=== PATIENT | female | born 1960 | race Caucasian/White ===

== ENCOUNTER 2017-01-21 10:27 | Observation (INO) | payer OTHER ==
[~2017-01-21] VITALS: Ht 170.2 cm; Wt 87.8 kg
--- NOTE | ~2017-01-21 | HEMODYNAMI ---
PATIENT:KAYLA PERKINS MEDICAL RECORD: [id number] : 62 [facility] ADMISSION DATE: 01/21/17 Generatedon:01/22/20179:58 Patient name: KAYLA PERKINS Patient #: [id number] SSN: : 1960 Date of study: 01/22/2017 Page: Of Hemodynamic Procedure Report Patient Data Patient Demographics Procedure consent was obtained First Name: KAYLA Gender: Female Last Name: GREGORIO : 1960 Middle Initial: D Age: 56 year(s) Patient #: [id number] Race: Unknown Additional ID: [id number] Contact details [address]: [address] [place] [address] State: [place] City: [place] Zip code: [address] Past Medical History Allergies Allergen Reaction Date Comments Reported Codeine 01/22/2017 Admission Admission Data Admission Date: 01/21/2017 Admission Time: 12:51 Room #: [facility]9 Procedure Procedure Types Cath Procedure Diagnostic Procedure [facility] w/Coronaries Miscellaneous Procedures Moderate Sedation up to 30 minutes Procedure Description Procedure Date Procedure Date: 01/22/2017 Procedure Start Time: 9:41 Procedure End Time: 9:58 Procedure Staff Name Function Andrew Solorzano MD Performing Physician Kalyn Hicks RT Scrub Murray Brown RN Nurse Reba Molina RT Monitor Procedure Data Cath Procedure Fluoroscopy Diagnostic fluoroscopy Total fluoroscopy Time: 1.6 time: 1.6 min min Diagnostic fluoroscopy Total fluoroscopy dose: 565 dose: 565 mGy mGy Entry Location Entry Primary Successful Side Size Upsize Upsize Entry Closure Succes sful Closure Location (Fr) 1 (Fr) 2 (Fr) Remarks Device Remarks Femoral Right 5 Fr Exoseal artery Estimated blood loss: 5 ml Diagnostic catheters Device Type Used For End Catheter Placement Cordis 5Fr JL 4.0 Left Coronary Catheter (MP) Angiography Cordis 5Fr 3DRC Catheter Right Coronary (MP) Angiography Cordis 5Fr Pigtail LV Angiography Catheter (MP) Procedure Complications No complications Procedure Medications Medication Administration Route Dosage Oxygen NC 2 l/min Lidocaine 2% added to field 20 Heparin Flush Bag added to field 2 bags (1000units/500ml NS) 0.9% NaCl I.V. 100 ml/hr Versed I.V. 2 mg Fentanyl I.V. 25 mcg Hemodynamics Rest Heart Rate: 63 (bpm) Pressure Samples Time Site Value (mmHg) Purpose Heart Use Rate(bpm) 9:51 LV 161/-5,23 EDP 72 9:52 AO 137/73(103) Pullback 78 9:52 LV 140/18,22 Pullback 78 Gradients Valve Time Site 1 Site 2 Mean SEP/DFP Peak To Heart Use (mmHg) (sec/min) Peak Rate (mmHg) (bpm) Aortic 9:52 LV AO 4 20 3 78 140/18,22 137/73(103) Calculations Valve P-P Mean Valve Index Valve Source Name Gradient Area Flow (cm2) Aortic 3 4 3 4 Snapshots Pre Cath Intra NCS Post Cath Vital Signs Time Heart Resp SPO2 etCO2 [id number] NIBP (mmHg) Rhythm Pain Sedation Rate (ipm) (%) (mmHg) (mmHg) Status Level (bpm) 9:26:17 62 18 95 0 0 154/81(127) NSR 0 (11) 10(A) , No pain 9:30:44 68 21 97 0 0 141/72(116) NSR 0 (11) 10(A) , No pain 9:35:08 73 17 96 0 0 135/77(118) NSR 0 (11) 10(A) , No pain 9:39:24 74 15 95 0 0 136/72(105) NSR 0 (11) 10(A) , No pain 9:43:40 78 14 96 0 0 131/71(96) NSR 0 (11) 9(A) , No pain 9:48:02 76 16 96 0 0 129/74(108) NSR 0 (11) 9(A) , No pain 9:53:03 77 15 96 0 0 128/69(105) NSR 0 (11) 10(A) , No pain 9:57:21 72 16 97 0 0 Out of NSR 0 (11) 10(A) range , No pain Medications Time Medication Route Dose Verified Delivered Reason Notes Effect iveness by by 9:34:30 Oxygen NC 2 Andrew Buffie used for l/min Jeanine Brown RN procedure 9:34:37 Lidocaine 2% added 20ml Andrew Buffie used for to vial Jeanine Brown RN procedure field 9:34:44 Heparin Flush added 2 Andrew Buffie used for Bag to bags Jeanine Brown RN procedure (1000units/500ml field CRUZ NS) 9:35:07 0.9% NaCl I.V. 100 Andrew Buffie Per ml/hr Jeanine Brown RN physician 9:37:42 Versed I.V. 2 mg Andrew Buffie for Jeanine Brown RN sedation 9:37:48 Fentanyl I.V. 25 Andrew Buffie for mcg Jeanine Brown RN sedation Procedure Log Time Note 9:08:01 Murray Brown RN sent for patient. Start room use. 9:08:02 Time tracking: Call back 9:08:06 Plan of Care:Hemodynamics will remain stable., Cardiac rhythm will remain stable., Comfort level will be maintained., Respiratory function will remain adequate., Patient/ family verbilizes understanding of procedure., Procedure tolerated without complication., Recovers from procedure without complications.. 9:18:35 Patient received from PCU to CCL 1 Alert and oriented. Tansferred to table in Supine position. 9:18:37 Warm blankets applied, and cory hugger turned on for patient comfort. 9:18:37 Correct patient and procedure confirmed by team. 9:18:38 Signed procedure consent form obtained from patient. 9:18:39 ECG and BP/O2 sat monitors applied to patient. 9:18:39 Full Disclosure recording started 9:24:58 Vital chart was started 9:26:02 Rhythm: sinus rhythm 9:26:08 H&P Date Dictated: 01/22/2017 Within 30 days and on chart.. 9:26:10 Pre-procedure instructions explained to patient. 9:26:10 Pre-op teaching completed and patient verbalized understanding. 9:26:11 Family in patients room. 9:26:20 Patient NPO since Midnight. 9:26:26 Patient allergic to Codeine 9:26:29 Is the patient allergic to Iodine/contrast media? No. 9:26:31 Is patient on blood thinner?Yes 9:26:35 ACC The patient was administered the following blood thiners within the last 24 hours: ACCAspirin, ACCPlavix 9:26:38 Patient diabetic? No. 9:26:42 Previous problem with sedation/anesthesia? No ? 9:26:43 Snore? Yes 9:26:44 Sleep apnea? Yes 9:26:45 Deviated septum? No 9:26:47 Opens mouth fully? Yes 9:26:47 Sticks out tongue? Yes 9:26:49 Airway obstruction? No ? 9:26:50 Dentures? No ? 9:26:53 Pre procedure: right dorsailis pedis pulse 2+ Normal; easily identifiable; not easily obliterated 9:27:03 Pre procedure: right radial pulse 1+ Palpable, but thready & weak; easily obliterated 9:27:07 Patient pain scale 0/10 ?. 9:27:12 IV patent on arrival in right hand with 0.9% NaCl at [facility]. 9:27:16 Lab results completed and on chart. 9:27:20 Right groin area was prepped with chlora-prep and draped in sterile fashion 9:27:23 Alarms reviewed by R. N. 9:27:24 Sharps counted by scrub and verified by R.N. 9:27:28 Use device set Femoral Dx 9:27:29 Acist Syringe opened to sterile field. 9:27:29 Bag Decanter opened to sterile field. 9:27:29 Medline Cath Pack opened to sterile field. 9:27:30 Terumo 5Fr [place] Sheath opened to sterile field. 9:27:30 St Enzo 260cm J .035 wire opened to sterile field. 9:27:32 Acist Hand Control opened to sterile field. 9:27:32 Acist Manifold opened to sterile field. 9:27:33 Diagnostic Infinity 5Fr Multipack catheter opened to sterile field. 9:27:33 Tegaderm 4 x 4 opened to sterile field. 9:27:42 Cook 4Fr Micropuncture ([id number]) opened to sterile field. 9:27:49 Baseline sample Acquired. 9:34:22 Physician paged 9:34:30 Oxygen 2 l/min NC was administered by Murray Brown RN; used for procedure; 9:34:37 Lidocaine 2% 20ml vial added to field was administered by Murray Brown RN; used for procedure; 9:34:44 Heparin Flush Bag (1000units/500ml NS) 2 bags added to field was administered by Murray Brown RN; used for procedure; 9:35:07 0.9% NaCl 100 ml/hr I.V. was administered by Murray Brown RN; Per physician; 9:37:02 Final Timeout: patient, procedure, and site verified with staff and physician. All members of the team are in agreement. 9:37:04 Right groin site verified by team. 9:37:06 Physical assessment completed. ASA score P 2 - A patient with mild systemic disease as per Andrew Solorzano MD. 9:37:10 Sedation plan: IV Moderate Sedation Versed, Fentanyl 9:37:14 Zero performed for pressure channel P1 9:37:42 Versed 2 mg I.V. was administered by Murray Brown RN; for sedation; 9:37:48 Fentanyl 25 mcg I.V. was administered by Murray Brown RN; for sedation; 9:38:19 Zero performed for pressure channel P1 9:40:47 Procedure started. 9:41:11 Local anesthetic to right femoral artery with Lidocaine 2% by Andrew Solorzano MD.INITIAL ACCESS ONLY 9:45:03 A 5 Fr sheath was inserted into the Right Femoral artery 9:45:10 A Cordis 5Fr JL 4.0 Catheter (MP) was advanced over the wire and used for Left Coronary Angiography. 9:47:06 Catheter exchanged over wire. 9:47:59 A Cordis 5Fr 3DRC Catheter (MP) was advanced over the wire and used for Right Coronary Angiography. 9:50:22 Catheter exchanged over wire. 9:51:41 A Cordis 5Fr Pigtail Catheter (MP) was advanced over the wire and used for LV Angiography. 9:52:04 LV gram done using LOZANO 9:52:06 LV hemodynamics recorded. 9:52:09 Injector settings: Ml/sec: 12, Volume: 8, 9:53:01 Catheter removed. 9:53:21 Sheath removed intact; hemostasis achieved with Exoseal to the Right Femoral artery. 9:53:42 Procedure ended.(Physican Out) 9:55:10 Fluoroscopy time 01.60 minutes. 9:55:15 Flurop Dose total: 565 9:55:15 Fluoroscopy dose: 565 mGy 9:55:17 Sharps counted by scrub and verified by R.N. 9:55:20 Insertion/operative site no bleeding no hematoma. 9:55:23 Post-op/insertion site Right Femoral artery dressed using a 4 x 4 and Tegaderm. 9:55:26 Post right femoral artery:stable, clean and dry 9:55:28 Post Procedure Pulses reassessed and unchanged 9:55:34 Post-procedure physical assessment completed. ASA score P 2 - A patient with mild systemic disease as per Andrew Solorzano MD. 9:55:36 Post procedure rhythm: unchanged. 9:55:38 Estimated blood loss: 5 ml 9:55:39 Post procedure instruction explained to patient.Patient verbalizes understanding. 9:55:43 Patient needs reinforcement of post procedure teaching. 9:55:53 Procedure type changed to Cath procedure, Diagnostic procedure, LHC, LHC w/Coronaries, Miscellaneous Procedures, Moderate Sedation up to 30 minutes 9:56:02 Procedure Complication : No complications 9:56:04 See physician's report for complete and final results. 9:56:22 Cordis 5Fr Exoseal opened to sterile field. 9:56:45 Procedure and supply charges have been captured, reviewed, submitted and are correct. 9:57:58 Vital chart was stopped 9:58:00 Report given to PCU. 9:58:03 Patient transfered to PCU with Bed. 9:58:10 Procedure ended. 9:58:10 Full Disclosure recording stopped 9:58:14 End room use (Document Last) Device Usage Item Name Manufacture Quantity Catalog Hospital Part Current Minimal Lot# / Number Charge Number Stock Stock Serial# Code Acist Syringe Acist 1 28390 [id number] 589379 623801 20 [employer] Bag Decanter Microtek 1 2002S 171512 62917 351369 5 Medical Inc. Medline Cath Cardinal 1 [id number] 214822 72837 255974 5 Pack Health Terumo 5Fr Terumo 1 [id number] 788503 283683 651748 [address] En[address] Enzo 1 596641 686213 783846 541596 30 J .035 wire Acist Hand Acist 1 83120 917560 287990 976782 5 Control [employer] Inc Acist Acist 1 43922 838447 566216 916142 5 Manifold Medical Systems Inc Diagnostic Cardinal 1 [id number] 334121 92007 101891 30 Infinity 5Fr Health Multipack catheter Tegaderm 4 x 3M 1 1626W 313691 168666 512905 5 4 Cook 4Fr [facility] 1 P19944 141314 236081 526909 5 Micropuncture ([id number]) Cordis 5Fr JL Cardinal 1 596297 5 4.0 Catheter Health (MP) Cordis 5Fr Cardinal 1 692315 5 3DRC Catheter Health (MP) Cordis 5Fr Cardinal 1 009092 5 Pigtail Health Catheter (MP) Cordis 5Fr Cardinal 1 EX500 325664 899387 077112 10 [facility] Signature Audit [place] Stage Time Signature Unsigned Intra-Procedure 01/22/2017 Reba 9:58:25 AM Counts RT(R) Signatures Monitor : Reba Signature : Counts RT Date : Time : [address] [address]
[~2017-01-21 10:27] MED LIST: BLACK COHOSH160 MG PO; CALTRATE 600 M600 M1; CYCLOBENZAPRINE10 MG PO; DEXILANT60 MG PO; EFFEXOR XR75 MG PO; FISH OIL 1,0001 CA1 PO; HYDROCODON-ACE1 EAC7 PO; NITROSTAT0.4 MG SL; NORVASC5 MG PO; PLAVIX75 MG PO; TENORMIN25 MG PO; TRILIPIX135 MG PO; VITAMIN B-121000 MCG PO; VITAMIN B650 MG PO; VITAMIN D5000 UNIT PO
[2017-01-21 11:07] LABS: BASOPHILS 0.4 % (0-2); EOSINOPHILS 3.6 % (0-7); HEMATOCRIT 46.6 % (36.0-48.0); HEMOGLOBIN 16.1 g/dL (12-16); IMMATURE GRANULOCYTES 0.4 % (0-5); LYMPHOCYTES 41.1 % (15-50); MCH 29.5 pg (26.0-34.0); MCHC 34.5 g/dL (31.0-37.0); MCV 85.5 fL (80.0-100.0); MEAN PLATELET VOLUME 10.7 fL (7.4-10.4); MONOCYTES 6.3 % (2-11); NEUTROPHILS 48.2 % (40-80); PLATELET COUNT 213 10x3/uL (130-400); RBC 5.45 10x6/uL (4.00-5.40); RDW 14.3 % (11.5-14.5); WBC 8.1 10x3/uL (4.8-10.8)
[2017-01-21 11:18] LABS: ALBUMIN 4.1 g/dL (3.4-5.0); ALKALINE PHOSPHATASE 81 U/L (46-116); ALT (SGPT) 40 U/L (10-68); BILIRUBIN - TOTAL 0.32 mg/dL (0.2-1.3); CALC OSMOLALITY 282 mosm/kg (275-300); CALCIUM 9.1 mg/dL (8.5-10.1); CARBON DIOXIDE 24.1 mmol/L (21.0-32.0); CHLORIDE - SERUM 107 mmol/L (98-107); CREATININE - SERUM 0.7 mg/dL (0.6-1.3); GLUCOSE 111 mg/dL (74-106); POTASSIUM - SERUM 4.2 mmol/L (3.5-5.1); PROTEIN - SERUM 7.8 g/dL (6.4-8.2); SODIUM 142 mmol/L (136-145); UREA NITROGEN 10 mg/dL (7-18); eGFR NON AFRICAN AMERICAN > 90 mL/min (90-120)
[2017-01-21 11:29] LABS: CREATINE KINASE 96 UL (21-215)
[2017-01-21 11:30] LABS: TROPONIN-I < 0.017 ng/mL (0.000-0.060)
[2017-01-21] MEDS ORDERED: CATAPRES0.1 MG PO (13:34)
[2017-01-21] MEDS ORDERED: ASPIRIN81 MG PO (13:35)
[2017-01-21] MEDS ORDERED: OMEPRAZOLE40 MG PO (13:36)
[2017-01-21 14:19] VITALS: BP 119/75; Ht 170.2 cm; Wt 87.8 kg
[2017-01-22 00:03] VITALS: BP 121/67
[2017-01-22 03:59] VITALS: BP 111/61
[2017-01-22 07:14] LABS: BASOPHILS 0.4 % (0-2); EOSINOPHILS 3.8 % (0-7); HEMATOCRIT 42.5 % (36.0-48.0); HEMOGLOBIN 14.3 g/dL (12-16); IMMATURE GRANULOCYTES 0.4 % (0-5); LYMPHOCYTES 49.3 % (15-50); MCH 28.8 pg (26.0-34.0); MCHC 33.6 g/dL (31.0-37.0); MCV 85.7 fL (80.0-100.0); MEAN PLATELET VOLUME 10.4 fL (7.4-10.4); MONOCYTES 6.2 % (2-11); NEUTROPHILS 39.9 % (40-80); PLATELET COUNT 181 10x3/uL (130-400); RBC 4.96 10x6/uL (4.00-5.40); RDW 14.3 % (11.5-14.5); WBC 7.4 10x3/uL (4.8-10.8)
[2017-01-22 07:22] LABS: CALC OSMOLALITY 278 mosm/kg (275-300); CALCIUM 8.3 mg/dL (8.5-10.1); CARBON DIOXIDE 24.3 mmol/L (21.0-32.0); CHLORIDE - SERUM 107 mmol/L (98-107); CREATININE - SERUM 0.7 mg/dL (0.6-1.3); GLUCOSE 94 mg/dL (74-106); POTASSIUM - SERUM 4.1 mmol/L (3.5-5.1); SODIUM 140 mmol/L (136-145); UREA NITROGEN 12 mg/dL (7-18); eGFR NON AFRICAN AMERICAN > 90 mL/min (90-120)
[2017-01-22 07:49] VITALS: BP 124/70
--- NOTE | 2017-01-22 09:38 | HP ---
PATIENT: KAYLA PERKINS MEDICAL RECORD: [id number] ACCOUNT: [id number] LOCATION:[address] : 62 ADMISSION DATE: 01/21/17 HISTORY AND PHYSICAL EXAMINATION REASON FOR ADMISSION: Chest and arm pain. HISTORY OF PRESENT ILLNESS: The patient is a 56-year-old female who has a 40+ pack year history of smoking. She states for the last 2 weeks, she has noticed some at rest and exertional chest discomfort like a tightness, some tingling around her lips and her left upper shoulder and arm. If walking any distance, she would have these symptoms. She did not mention this to her , but today, when she got up this morning, her mouth began to tingle. Her neck and chin felt numb. She felt some tightness in her chest, tingling in her left shoulder and arm. She checked her blood pressure and it was 180/108. She took a clonidine 0.1 p.o. and then came to the ED. Once in the ED, she was given nitroglycerin and reduced her symptoms approximately 50%. Recent cardiac enzymes and EKG did not show acute injury. Due to her prior history of PTCA, continued smoking history and very strong family history of premature heart disease and sudden in her father, she is admitted for further evaluation. PAST MEDICAL HISTORY: Postmenopausal, history of headaches, negative CT brain remotely, depression, GERD, nicotine abuse, essential hypertension, CAD with prior PTCA of the RCA 3 years ago and hyperlipidemia. PAST SURGICAL HISTORY: Cholecystectomy, times 2, hysterectomy, tonsillectomy and adenoidectomy, had her ovary removed for benign reasons in the past, tubal ligation. SOCIAL HISTORY: She is , has children and grandchildren. Her is retired. 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 She smoked 1 pack a day for the last 35 years. She does not drink alcohol. HOME MEDICATIONS: Flexeril 10 mg t.i.d. p.r.n. muscle spasms, atenolol 25 mg daily, TriLipix 135 mg daily, omega 3 fish oil 1 p.o. daily, Norvasc 5 mg p.o. daily, clonidine 0.1 mg p.o. q.6 hours for systolic over 180, aspirin 81 mg p.o. daily, Onamia 5/325 mg 1 q.6 hours p.r.n. back pain, calcium carbonate 600 mg p.o. daily, omeprazole 40 mg p.o. daily, vitamin D 5000 units p.o. weekly, vitamin B12 1000 mcg p.o. daily and vitamin B6 1 daily. ALLERGIES: TO CODEINE. FAMILY HISTORY: Mother due to metastatic melanoma. She had hypertension as well. Father of sudden at age 53. REVIEW OF SYSTEMS: GENERAL: She has been fatigued for several months. No recent fever. HEENT: No recent visual change, sinus congestion, or sore throat. RESPIRATORY: Have mild short of breath on exertion. No recent cough. CARDIAC: Exertional and rest chest pain as mentioned above. She has had some perioral tingling associated with the chest tightness and left arm discomfort radiating into her left thumb and index finger at times. She also has some exertional symptoms in both of her feet, when she walks to distance and stops when she rest. NEUROLOGIC: No history of stroke, TIA, or vascular headaches. HISTORY AND PHYSICAL [id number] KAYLA PERKINS INTEGUMENT: No rash or itching. PSYCHIATRIC: Denies depressed mood. MUSCULOSKELETAL: Has chronic lumbago and occasional sciatica. GASTROINTESTINAL: Intermittent dyspepsia without change in stools or blood per rectum. GYNECOLOGICAL: No vaginal bleeding. GENITOURINARY: No dysuria. PHYSICAL EXAMINATION: VITAL SIGNS: Temperature 97.9 Fahrenheit orally, pulse 63 and regular, respirations are 20, blood pressure 135/82, sat 90% on room air. HEENT: Eyes are clear. NECK: No bruits or masses. CHEST: Distant breath sounds without wheeze or rales. Chest wall is nontender. HEART: Regular rate without MGR. PMI appropriate. ABDOMEN: Soft, mildly obese and nontender. PELVIC: Deferred. EXTREMITIES: No CC&E. She has good distal pulses. NEUROLOGIC: She is grossly intact motor and sensory. Gait is normal. Memory is intact. LABORATORY DATA: White count 8000, H&H 16 and 46.6 respectively. BMP is normal. Glucose of 111. Cardiac enzymes, initial troponin is less than 0.017. IMAGING DATA: Chest x-ray shows no acute cardiopulmonary disease. EKG reveals a sinus bradycardia, rate of 60, T-wave in lead III of unknown significance. No acute changes. ASSESSMENT: 1. Symptoms compatible with angina in a patient with history of right coronary artery PTCA 2013. 2. Hypertension. 3. Hyperlipidemia. 4. Strong family history of heart disease. 5. Nicotine abuse. PLAN: The patient admitted for serial enzymes. Dr. Solorzano has seen the patient and plans for cardiac catheterization in the morning. We will place on topical Nicoderm patch tonight. Further workup pending clinical course. TRANSINT:[id number] Voice Confirmation ID: [id number] DOCUMENT ID: [id number] GOYO CHEN MD at 0938 CC: [id number] DICTATION DATE: 01/21/17 1729 SUPERVISOR HAND WORKERS: 01/21/17 1930 ADM [place] [id number] [place] [id number]
== END 2017-01-22 14:20 | disposition home or self-care (01) ==
LOC: D.ER 10:27 → D.M2 12:51 → OBSVTIME 12:51 → D.M2 01-22 14:20
PROVIDERS: Emergency Medicine; Internal Medicine Cardiovascular Disease; ADMIT Family Medicine
DX: R07.89 Other chest pain (principal); I25.10 Atherosclerotic heart disease of native coronary artery without angina pectoris; Z95.5 Presence of coronary angioplasty implant and graft; Z78.0 Asymptomatic menopausal state; K21.9 Gastro-esophageal reflux disease without esophagitis; E78.5 Hyperlipidemia, unspecified; Z87.891 Personal history of nicotine dependence; I10 Essential (primary) hypertension

== ENCOUNTER → 2019-10-01 10:35 | Outpatient (CLI) | payer BC ==
[2017-01-21 14:19] VITALS: BMI 27.4
--- NOTE | ~2019-10-01 | EC ---
PATIENT:KAYLA PERKINS DATE OF SERVICE: 10/01/19 SEX: F MEDICAL RECORD: [id number] DATE OF : 62 LOCATION:[facility] AGE OF PATIENT: 59 ADMISSION DATE: 10/01/19 REFERRING PHYSICIAN: INTERPRETING PHYSICIAN: SHAHANA ARGUELLO MD ECHOCARDIOGRAM REPORT ECHO CHARGES 4 ECHO COMPLETE Date: 10/01/19 CLINICAL DIAGNOSIS: HTN/CAD ECHOCARDIOGRAPHIC MEASUREMENTS (adult normal given) AC root (d.<3.7cm) 3.3 cm LV Septum d (<1.2 cm> 1.4 cm Valve Excursion 1.6 cm LV Septum (systole) 1.6 cm Left Atria (s.<4.0cm> 3.5 cm LVPW d(<1.2cm) 1.4 cm RV (d.<2.3cm) 3.4 cm LVPW (sytole) 1.7 cm LV diastole(<5.6CM) 4.4 cm MV E-F(>70mm/sec) cm LV systole 2.9 cm LVOT Diameter 1.9 cm MV exc.(>10mm) 1.2 cm Est.ejection fraction (50-75%) % DOPPLER: LVIT cm/sec A 106.0cm/sec E 75.0 cm/sec LA cm/sec RVSP 22 mmHg LVOT 99 cm/sec AOP1/2T m/s Asc. Ao 133 cm/sec RVOT 68 cm/sec RA cm/sec PA 101 cm/sec AV Gradient Peak 7.10 mmHg AV Mean 3.54 mmHg AV Area 2.0 cm MV Gradient Peak 8.03 mmHg MV Mean 2.96 mmHg MV Area cm COMMENTS: Slate Splitter: 2 ULISES HILTON Lay Brother: 3 Dr. Herrera TAPE# PACS Pericardial Effusion N DATE OF SERVICE: Adequate 2D, color flow imaging, spectral Doppler, and M-Mode. LVH is present. LV internal dimensions are normal. Wall motion is normal. EF is greater than or equal to 55%. Aortic valve is sclerotic. No evidence of stenosis by Doppler interrogation. Left atrium is normal at 3.5 cm. Mitral valve shows no prolapse. Mild MR. Right-sided chambers are grossly normal. Trace TR. ECHOCARDIOGRAM REPORT [id number] KAYLA PERKINS TRANSINT:[id number] Voice Confirmation ID: [id number] DOCUMENT ID: [id number] SHAHANA ARGUELLO MD CC: [id number] DICTATION DATE: 10/02/19 1312 CEMENT PATCHER: 10/02/19 190 DEP CLI 10/01/19 [place] [id number] [place] [id number]
[~2019-10-01 10:35] MED LIST changes: +ASPIRIN81 MG PO; +CATAPRES0.1 MG PO; +OMEPRAZOLE40 MG PO
== END | disposition home or self-care (01) ==
LOC: D.HCCECHO 10:35
PROVIDERS: ATTEND Internal Medicine Interventional Cardiology
DX: I10 Essential (primary) hypertension (principal)

== ENCOUNTER → 2020-02-27 07:58 | Outpatient (CLI) | payer BC ==
[2017-01-21 14:19] VITALS: BMI 27.4
== END | disposition home or self-care (01) ==
LOC: D.CT 07:58
PROVIDERS: ATTEND Family Medicine
DX: R91.1 Solitary pulmonary nodule (principal); R04.2 Hemoptysis

== ENCOUNTER 2020-07-14 06:05 | Day surgery (SDC) | payer BC ==
[~2020-07-14] VITALS: Ht 170.2 cm; Wt 80.9 kg
[~2020-07-14 06:05] MED LIST changes: +EFFEXOR37.5 MG PO; +EFFEXOR75 MG PO; +LOPRESSOR25 MG PO; +PEPCID40 MG PO; +PREDNISONE5 MG PO; +TALTZ INJ; +ZYRTEC10 MG PO
[2020-07-14 06:42] LABS: BASOPHILS 0.3 % (0-2); EOSINOPHILS 2.5 % (0-7); HEMATOCRIT 44.8 % (36.0-48.0); HEMOGLOBIN 15.4 g/dL (12-16); IMMATURE GRANULOCYTES 0.5 % (0-5); LYMPHOCYTE ABS# 3.23 10x3/uL (1.18-3.74); MCH 29.3 pg (26.0-34.0); MCHC 34.4 g/dL (31.0-37.0); MCV 85.3 fL (80.0-100.0); MEAN PLATELET VOLUME 9.7 fL (7.4-10.4); MONOCYTES 7.4 % (2-11); NEUTROPHIL ABS# 5.77 10x3/uL (1.56-6.13); NEUTROPHILS 57.3 % (40-80); PLATELET COUNT 210 10x3/uL (130-400); RBC 5.25 10x6/uL (4.00-5.40); RDW 13.9 % (11.5-14.5); WBC 10.1 10x3/uL (4.8-10.8)
[2020-07-14 06:51] LABS: CALCIUM 9.3 mg/dL (8.5-10.1); CARBON DIOXIDE 27.3 mmol/L (21.0-32.0); CREATININE - SERUM 0.9 mg/dL (0.6-1.3); POTASSIUM - SERUM 3.3 mmol/L (3.5-5.1)
[2020-07-14 07:07] VITALS: BP 133/71; Ht 170.2 cm; Wt 80.9 kg
--- NOTE | 2020-07-14 19:42 | OP ---
PATIENT NAME: KAYLA PERKINS MEDICAL RECORD: [id number] :62 LOCATION:[facility] ADMISSION DATE: SURGEON: LOBO KOVACS DO DATE OF OPERATION: 07/14/2020 PROCEDURE: EGD with biopsies. INDICATION: Epigastric pain, belching symptom, heartburn. SCOPE: Olympus video gastroscope. MEDICATIONS: Propofol 200 mg IV per Anesthesia. ESTIMATED BLOOD LOSS: Minimal. COMPLICATIONS: None. FINDINGS: Informed consent was given. The patient was made comfortable with the above medication. After reaching an adequate level of sedation by slow IV push, the patient was placed on the left side. The endoscope was advanced under direct visualization through the mouth to the second portion of the duodenum with ease. The esophagus appeared normal down to the GE junction. A couple cold forceps biopsies were taken from the mid esophagus to submit for histopathology and to rule out the presence of eosinophils. At the GE junction, there was evidence of LA class A reflux-induced esophagitis. The endoscope was advanced beyond the GE junction into the stomach and retroflexed to view the cardia and fundus, which appeared normal. There were a few scattered benign-appearing fundic gland gastric polyps located in the stomach body. There were some mild chronic gastritis changes consisting of erythema and granularity and some congestion in a patchy distribution in the distal body of the stomach as well as the antrum. Cold forceps biopsies were taken from the antrum and incisura to submit for histopathology and to rule out the presence of H. pylori. The endoscope was advanced beyond the pylorus into the duodenum, which appeared normal to the second portion. Cold forceps biopsies were taken to submit for histopathology. The endoscope was withdrawn from the patient. The patient tolerated the procedure well and there were no complications. IMPRESSION: 1. LA class A reflux-induced esophagitis. 2. Mild chronic gastritis. 3. Otherwise, normal upper endoscopy with biopsies taken from the mid esophagus, antrum and incisura, and duodenum. PLAN AND RECOMMENDATIONS: 1. Discharge home when recovery parameters are met. 2. Follow up biopsy specimen results. 3. GERD diet and reflux precautions. 4. Continue current medications, but increase omeprazole to 40 mg daily times 60 days. 5. Gastric emptying scan to rule out gastroparesis in light of her bloating and belching symptoms along with the epigastric pain. 6. Follow up in GI clinic in 6 to 8 weeks. TRANSINT:[id number] Voice Confirmation ID: [id number] DOCUMENT ID: [id number] OPERATIVE REPORT [id number] KAYLA PERKINS,LOBO Calvillo DO at 1942 CC: [id number] DICTATION DATE: 07/14/20826 TECHNICAL SERVICES ANALYST: 07/14/2028 [facility] 07/14/20 [place] [address] [place] [address]
== END 2020-07-14 09:04 | disposition home or self-care (01) ==
LOC: D.OPS 06:05
PROVIDERS: ATTEND Internal Medicine Gastroenterology
DX: R10.13 Epigastric pain (principal); R14.2 Eructation; K21.00 Gastro-esophageal reflux disease with esophagitis, without bleeding; K31.7 Polyp of stomach and duodenum; K29.70 Gastritis, unspecified, without bleeding

== ENCOUNTER → 2020-09-02 09:00 | Outpatient (CLI) | payer BC ==
[2020-07-14 07:07] VITALS: BMI 27.9
== END | disposition home or self-care (01) ==
LOC: D.NM 09:00
PROVIDERS: ATTEND Internal Medicine Gastroenterology
DX: R14.2 Eructation (principal)